=== PATIENT | male | born 1960 | race Caucasian/White ===

== ENCOUNTER → 2016-10-06 | Outpatient (CLI) | payer MEDICAID ==
[~2016-10-06] MED LIST: ALBUTEROL17 GM INH; BREO ELLIPTA I1 EACH INH; INCRUSE ELLI62.5 MCG INH
--- NOTE | ~2016-10-06 | PFT ---
[id number] [facility] [address] [facility]. [place], [place] [address] [id number] O MR#: [id number] NAME: BRIGIDO VARNER ROOM: SEX: Joselin STUDY DATE/TIME: 10/12/2016 : 1960 AGE: 56 STUDY DESCRIPTION: Attending Physician: Shaunna Cotter A.P.R.N. Referring Physician: Shaunna Cotter A.P.R.N. Primary Care Physician: [facility], PULMONARY DIAGNOSTIC REPORT EXAM Pulmonary function test. DESCRIPTION Spirometry is consistent with a severe obstructive defect with an FEV1 of 1.25 L, 35% of predicted. Flow volume loops consistent with an obstructive defect. Lung volumes suggest air trapping and hyperinflation. Diffusion capacity is severely reduced. Changes are consistent with severe emphysema. Dictated by... Rafi Ornelas TD: 10/12/2016 13:23 JOB #: [id number] PULMONARY DIAGNOSTIC REPORT
== END | disposition home or self-care (01) ==
LOC: CRC 12:29
DX: F17.210 Nicotine dependence, cigarettes, uncomplicated (principal)
CPT/HCPCS: 94060; 94726; 94729

== ENCOUNTER → 2017-01-19 | Day surgery (SDC) | payer MEDICAID ==
--- NOTE | ~2017-01-19 | OR ---
Unit #: [id number] #: [id number] Patient: BRIGIDO VARNER [id number] [address] [place], [place] [address] [id number] O MR#: [id number] NAME: BRIGIDO VARNER ROOM: Date of Procedure: 01/19/2017 Admission Date: 01/19/2017 Surgeon: Fabian Santos Jr., M.D. : 1960 Attending Physician: Fabian Santos Jr., M.D. Primary Care Physician: [facility] OPERATIVE REPORT INDICATION FOR PROCEDURE The patient is a 57-year-old white male, who recently presented to the office complaining of swelling of the right inguinal area and was noted to have a right inguinal hernia, which was incarcerated that was moderate in size. He is brought in this time for repair of this at his request. He understands the procedure including the risks, including that of recurrence, infection, nerve injury with chronic pain, and damage to the spermatic cord with damage to the testicle, and consents. PREOPERATIVE DIAGNOSIS Large right incarcerated inguinal hernia. POSTOPERATIVE DIAGNOSIS Large right incarcerated inguinal hernia noting a hernia involving the entire floor of the inguinal canal. ANESTHESIA General with LMA and 0.5% Marcaine with epinephrine locally as a field block. ELEMENTARY EDUCATOR Fang Elias. PROCEDURE PERFORMED Open right inguinal hernia repair with reduction and repair using plug and patch technique. DESCRIPTION OF PROCEDURE The patient was positioned in supine position. After being anesthetized, he was prepped and draped in routine fashion for right inguinal hernia repair. The right inguinal area was locally blocked with 0.5% Marcaine with epinephrine using a field block. A transverse incision was then made over the right inguinal canal. This was carried down through the subcutaneous tissue through Ritesh and Camper fascia and the external oblique fascia. The fibers of the external oblique were split from the external ring up past the internal ring. The cord structures were elevated from the pubic tubercle. There was a large hernia basically involving the entire floor of the inguinal canal making it a pantaloon type hernia. The sac was freed up the cord and opened and then high ligated with a 0 Ethibond suture followed by 0 Ethibond transfixion stitch. The redundant portion of the hernia sac was excised with a Bovie cautery. The stump retracted well up into the internal ring. An extra Unit #: [id number] #: [id number] Patient: BRIGIDO VARNER large plug was placed in the area of the internal ring and sutured circumferentially with interrupted 0 Ethibond sutures. The patch was placed over the floor of the inguinal canal and sutured circumferentially to the pubic tubercle and up around the base of the cord near the internal ring. After the mesh was then placed suturing it with 0 Ethibond sutures, the wound was irrigated. There was no evidence of any bleeding from the cord or the other areas. The external oblique fascia was then closed over the top of the cord and ilioinguinal nerve which was preserved. This was done with a 3-0 running Vicryl suture. Ritesh and Camper fascia were approximated with interrupted 3-0 Vicryl sutures. Skin edges approximated with stainless-steel skin clips and skin stapling device. Sterile dressing was applied externally. Estimated blood loss less than 20 mL. The patient received less than 1000 mL crystalloid solution during the procedure. Sponges and instrument counts were correct x3. No drains used. No complications. The patient was taken to the recovery room with stable vital signs and in satisfactory condition. Dictated by... Fabian Santos Jr. MNathanael GOTTI/kisha TD: 01/20/2017 00:39 JOB #: [id number] OPERATIVE REPORT Page 1 of 1 X Fabian Santos MD X PROCEDURE OPERATIVE NOTE
== END | disposition home or self-care (01) ==
LOC: CSUR 05:55
DX: K40.30 Unilateral inguinal hernia, with obstruction, without gangrene, not specified as recurrent (principal); J43.9 Emphysema, unspecified; J45.909 Unspecified asthma, uncomplicated; F17.210 Nicotine dependence, cigarettes, uncomplicated; Z87.01 Personal history of pneumonia (recurrent); Z79.51 Long term (current) use of inhaled steroids; Z79.899 Other long term (current) drug therapy; Z98.890 Other specified postprocedural states
CPT/HCPCS: 88302; J0690; J2250; J2270; J2405; J3010